=== PATIENT | female | born 1965 | race Hispanic/Latino ===

== ENCOUNTER → 2020-09-12 | Outpatient (CLI) | payer OTHER ==
--- NOTE | 2020-09-12 10:20 | Diagnostic Imaging Report ---
Exam: Bone mineral density study. History: Osteopenia. Comparison: None Discussion: Evaluation of the left hip and lumbar spine was performed utilizing DEXA Hologic bone densitometer. The study is technically adequate. Left hip total bone mineral density: 0.778gm/cm2, T-score is -1.4, Z-score is -0.7. Left hip femoral neck bone mineral density: 0.679gm/cm2, T-score is -1.7, Z-score is -0.7. Lumbar spine total bone mineral density:0.811gm/cm2, T-score is-1.2, Z-score is -1.1. Impression: 1. Osteopenia of the left hip, fracture risk is increased 2. Osteopenia of the lumbar spine, fracture risk is increased Least significant change (LSC) for bone mineral density as provided by pluck separator is 0.023 g/cm2 for lumbar spine and 0.027 g/cm2 for total hip. 10 -year fracture risk per WHO Fracture Risk Assessment Tool (FRAX) for: Major osteoporotic fracture is 3.5% Hip fracture is 0.3% The above fracture probability is calculated for an untreated patient. Fracture probably may be lower if the patient has received treatment. All treatment decisions require clinical judgment and consideration of individual patient factors, including patient preferences, comorbidities, previous drug use and risk factors not captured in the FRAX model (e.g. frailty, falls, vitamin D deficiency, increased bone turnover, interval significant decline in BMD). The patient's fracture risk is compared to an age-matched control. Medical evaluation for secondary causes of low bone bone mineral density may be appropriate. Correlate clinically for the necessity and timing of the next bone mineral density study. Signed by: Dr. Srinivasa Rebolledo M.D. on 09/12/2020 10:17 AM
== END ==
LOC: MAMMO 08:50
PROVIDERS: ATTEND Obstetrics & Gynecology
DX: Z12.31 Encounter for screening mammogram for malignant neoplasm of breast (principal); M81.0 Age-related osteoporosis without current pathological fracture
CPT/HCPCS: 77067; 77080

== ENCOUNTER → 2020-10-03 | Outpatient (CLI) | payer OTHER ==
--- NOTE | 2020-10-04 08:16 | Diagnostic Imaging Report ---
#[id number] - USBRECOMRT ULTRASOUND OF THE RIGHT BREAST : 10/03/2020 Comparison is made to exam dated: 09/12/2020 mammogram - [facility]. Real-time ultrasound was performed on the right breast. IMPRESSION: NEGATIVE There is no sonographic evidence of malignancy. DAVIDE MURRY M.D., mp/opalrad:10/03/2020 10:44:06 Doughmaker: Pratibha Vazquez RDMS, [facility] Ultrasound BI-RADS: 1 Negative
--- NOTE | 2020-10-04 08:16 | Diagnostic Imaging Report ---
#[id number] - USBRECOMLT ULTRASOUND OF THE LEFT BREAST : 10/03/2020 No prior exams were available for comparison. Real-time ultrasound was performed on the left breast. Additional focused ultrasound at the region of patient's pain was performed. No abnormality identified sonographically. IMPRESSION: NEGATIVE There is no sonographic evidence of malignancy. A 1 year screening mammogram is recommended. DAVIDE MURRY M.D. mp/:10/03/2020 10:45:39 [employer] Representative: Pratibha Vazquez [facility], [facility] letter sent: Normal Exam Ultrasound BI-RADS: 1 Negative
== END ==
LOC: US 07:57
PROVIDERS: ATTEND Obstetrics & Gynecology
DX: N64.4 Mastodynia (principal)